=== PATIENT | male | born 1950 | race Caucasian/White ===

== ENCOUNTER 2018-04-23 07:40 | Outpatient (CLI) | payer MEDICARE, SELFPAY ==
[2018-04-23 08:49] LABS: Hemoglobin A1C 6.1 % (4.5-6.2)
[2018-04-23 09:17] LABS: Anion Gap 4.9 mmol/L (3-11); BUN 14 mg/dL (7-18); CO2 34.1 mmol/L (21.0-32.0); CREATININE 1.01 mg/dL (0.70-1.30); Calcium 8.5 mg/dL (8.5-10.1); Chloride 101 mmol/L (98-107); Cholesterol 163 mg/dL (50-200); Glucose 109 mg/dL (70-100); HDL Cholesterol 49 mg/dL (40-60); LDL CHOLESTEROL 111 mg/dL (<100); Potassium 4.2 mmol/L (3.5-5.1); Sodium 140 mmol/L (136-145); Triglyceride 54 mg/dL (30-150)
== END 2018-04-23 08:00 ==
PROVIDERS: PCP Nurse Practitioner Family; Visit Provider Nurse Practitioner Family
DX: E78.5 Hyperlipidemia, unspecified (principal); R73.01 Impaired fasting glucose
CPT/HCPCS: 36415; 80048; 80061; 83721; 83036

== ENCOUNTER 2018-04-27 00:42 | Outpatient (CLI) | payer MEDICARE, SELFPAY ==
--- NOTE | 2018-04-27 07:53 | DI.US_ITS ---
SYMPTOM/DIAGNOSIS: SCREENING FOR AAA, EX SMOKER AORTA ULTRASOUND: Sonographic evaluation of the abdominal aorta was performed. Maximum diameter of the abdominal aorta is 2.6 cm. seen in the mid abdominal aorta. No evidence of an abdominal aortic aneurysm is seen. The right common iliac artery measures 1.4 cm. The left common iliac artery measures 1.4 cm. IMPRESSION: No evidence of an abdominal aortic aneurysm.
== END 2018-04-27 01:02 ==
PROVIDERS: PCP Nurse Practitioner Family; Visit Provider Nurse Practitioner Family
DX: Z13.6 Encounter for screening for cardiovascular disorders (principal); Z87.891 Personal history of nicotine dependence
CPT/HCPCS: 76706

== ENCOUNTER 2020-06-09 10:09 | Outpatient (CLI) | payer MEDICARE, SELFPAY ==
[2020-06-11 18:33] LABS: COVID-19 RT-PCR Result Positive (Negative)
== END 2020-06-09 10:29 ==
PROVIDERS: PCP Nurse Practitioner Family; Visit Provider Nurse Practitioner Family
DX: Z20.828 Contact with and (suspected) exposure to other viral communicable diseases (principal)
CPT/HCPCS: U0003

== ENCOUNTER 2020-06-12 09:03 | Outpatient (CLI) | payer MEDICARE, SELFPAY ==
[2020-06-12] VITALS (11 sets, daily range): BP systolic 91–116; BP diastolic 57–68; PULSE 40–51; RESP 16–20; TEMP 35.8–36.6; O2SAT 94–96
[2020-06-12] MEDS: Normal Saline 500 ML 30 ML IV (10:36)
[2020-06-12] MEDS: Normal Saline Flush 10 ML SYR IVP (10:36)
== END 2020-06-12 09:23 ==
PROVIDERS: PCP Nurse Practitioner Family; Visit Provider Family Medicine
DX: U07.1 COVID-19 (principal)
CPT/HCPCS: 96365

== ENCOUNTER 2023-01-28 14:11 | Emergency (ER) | payer MEDICARE, SELFPAY ==
[2023-01-28 14:10] VITALS: BP 140/76; PULSE 88; RESP 20; TEMP 36.8; O2SAT 94
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
[2023-01-28 14:16] VITALS: BP 150/69; PULSE 81
[2023-01-28] MEDS: Acetaminophen 500 MG TAB 1000 MG PO (14:27)
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
[2023-01-28 14:37] LABS: Abs Immature Grans 0.03 10^3/uL (0.0-0.06); Absolute Basophil Count 0.03 10^3/uL (0.0-0.2); Absolute Eosinophil Count 0.02 10^3/uL (0.0-0.7); Absolute Lymphocyte Count 0.69 10^3/uL (1.2-3.4); Absolute Monocyte Count 0.64 10^3/uL (0.1-0.8); Absolute Neutrophil Count 6.86 10^3/uL (1.2-6.7); Basophils % 0.4; Eosinophils % 0.2; HCT 46.2 % (40.0-50.0); HGB 14.8 g/dL (13.5-17.5); Immature Grans % 0.4; Lymphocytes % 8.3; MCV 91 fL (80-95); MPV 9.9 fL (8.0-11.0); Monocytes % 7.7; Platelet Count 242 10^3/uL (130-400); RDW 12.4 % (11.8-14.1); RDW-SD 41.2 fL; WBC 8.27 10^3/uL (4.4-10.8)
[2023-01-28 14:50] LABS: ALT 23 U/L (16-63); AST 21 U/L (15-37); Albumin 3.5 g/dL (3.4-5.0); Alkaline Phosphatase 111 U/L (46-116); Anion Gap 7.7 mmol/L (3-11); BUN 11 mg/dL (7-18); Bilirubin, Total 1.5 mg/dL (0.2-1.0); CO2 30.3 mmol/L (21.0-32.0); CREATININE 1.1 mg/dL (0.70-1.30); Calcium 8.8 mg/dL (8.5-10.1); Chloride 99 mmol/L (98-107); Estimated GFR 70.44 (mL/min/1.73m2); Glucose 129 mg/dL (74-106); Potassium 3.3 mmol/L (3.5-5.1); Sodium 137 mmol/L (136-145); Total Protein 7.7 g/dL (6.4-8.2)
[2023-01-28] MEDS: Omnipaque 350 MG/ML 100 ML BTL IJ (15:55)
[2023-01-28] MEDS: Normal Saline - Diluent 50 ML VIAL IJ (15:55)
[2023-01-28] MEDS: Normal Saline Flush 10 ML SYR IVP (15:56)
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
[2023-01-28 16:41] VITALS: BP 134/71; PULSE 74
[2023-01-28 16:58] VITALS: BP 134/71; PULSE 74; RESP 20; O2SAT 94
== END 2023-01-28 16:59 | disposition home or self-care (01) ==
PROVIDERS: Emergency Provider Student in an Organized Health Care Education/Training Program; PCP Nurse Practitioner Family
DX: M54.50 Low back pain, unspecified (principal); M25.521 Pain in right elbow; V43.52XA Car driver injured in collision with other type car in traffic accident, initial encounter
CPT/HCPCS: 80053; 99285; 73030; 73080; 74177; 85025; 99283; J3490

== ENCOUNTER 2024-12-20 10:00 | Inpatient (IN) | payer OTHER, SELFPAY ==
[2024-12-20] VITALS (24 sets, daily range): BP systolic 120–149; BP diastolic 66–75; PULSE 59–71; RESP 18; TEMP 36.5–36.8; O2SAT 93–99
--- NOTE | 2024-12-20 10:05 | W.ED.GENAD ---
Discharge Plan Disposition Patient Disposition: Admit to [facility] Discharge Details Clinical Impression: Cellulitis of back Admit Date/Time: 12/20/24 11:41 Admit Provider: Benito Alford Attending Provider: Benito Alford Primary Care Provider: Unknown,Unknown ED Provider: Benito Eddy [facility] General Date/Time Provider Initiated Documentation: 12/20/24 10:05. HPI Narrative: MDM This is an overall well-appearing afebrile and not tachycardic 74-year-old male with cellulitis to his back failing outpatient management for which he will require hospitalization. I considered sepsis however the patient's vitals are reassuring and he lacks systemic symptoms so I did not order blood cultures nor check a lactate. No fluctuance to suggest abscess so no indication for incision and drainage. Given the confluence cellulitis is certainly possible that the patient may go on to develop an abscess but at the time of my exam there is no abscess. No vesicles to suggest zoster. No pain out of proportion to suggest necrotizing soft tissue infection so I do not feel that the patient requires CAT scan. I considered Lyme disease however the patient reports that he has not been outside for the past several weeks. There is no obvious erythema migrans. No trauma to the back so we will defer imaging. Patient is not a smoker nor diabetic though given his outpatient ceftriaxone followed by doxycycline and amoxicillin he will benefit from hospitalization for IV antibiotics. 11:22 AM I was in touch with Dr. Alford who graciously agreed to accept the patient for hospitalization. HPI This is a patient with a history of skin infection presenting with worsening symptoms. History provided by the patient. The patient began experiencing symptoms slightly over a week ago, initially perceiving them as an age-related skin change. The patient described the sensation as similar to a pimple or brown spot. Despite attempts to manage the condition with ointment and bandages, there was no improvement, and the surrounding area became increasingly tender. A subsequent visit to the [place] on 12/17/2024 resulted in a diagnosis of a pimple infection, for which the patient received an antibiotic injection in the leg. The patient was also prescribed amoxicillin and doxycycline, along with an ointment to be applied under a Band-Aid. However, upon returning to the [facility] today for a follow-up, the patient was advised to seek emergency care due to the need for incision and drainage. The patient reports no fevers and is not currently on any anticoagulant therapy. The patient does not smoke cigarettes and does not have diabetes. The patient's appetite and hydration status are normal. Exam General: Well-appearing in no acute distress speaking in complete sentences. Head: Normocephalic, atraumatic. Eye: Extraocular eye movements intact. No conjunctival injection. No scleral icterus. Ear, nose, mouth, throat: Grossly normal inspection. Normal voice, handling secretions normally. Neck: Trachea midline. Cardiovascular: Well-perfused distal extremities. Respiratory: Nonlabored respiration. Gastrointestinal: Nondistended abdomen. Musculoskeletal: No edema. Moving all 4 extremities spontaneously. Skin: On the patient's back, just to the right of midline there is a large erythematous area. Erythematous area palpated extensively. There is no fluctuance to suggest abscess. There are no vesicles. notes that inferior to this new area of cellulitis there is a chronic birthmark. Neurologic: Alert and appropriate, no apparent acute deficits. Psychiatric: Mood and manner are appropriate. Grooming and personal hygiene are appropriate. Related Data Home Medications ?Medication ?Instructions ?Recorded ?Confirmed multivitamin (Once Daily tablet) 1 ea PO DAILY 09/25/12 12/20/24 aspirin 81 mg tablet,delayed 81 mg PO DAILY #1 tab-cap 10/29/13 12/20/24 release (Adult Low Dose Aspirin) omeprazole 20 mg tablet,delayed 20 mg PO BID #180 tabs 04/21/17 12/20/24 release tamsulosin 0.4 mg capsule 0.4 mg PO DAILY #90 tab-caps 08/27/17 12/20/24 albuterol sulfate 90 mcg/actuation 1 - 2 puff inhalation Q4-6H PRN ##1 11/06/17 12/20/24 aerosol inhaler (ProAir HFA) inhalational spacing device (Space ##1 11/06/17 12/20/24 Chamber Plus) montelukast 10 mg tablet 10 mg PO DAILY #30 tab-caps 11/06/17 12/20/24 (Singulair) amlodipine 2.5 mg tablet 2.5 mg PO DAILY 01/28/23 12/20/24 furosemide 20 mg tablet 20 mg PO DAILY 01/28/23 12/20/24 propranolol 80 mg capsule,24 40 mg PO DAILY 01/28/23 12/20/24 hr,extended release Previous Rx's ?Medication ?Instructions ?Recorded omeprazole 20 mg tablet,delayed 20 mg PO BID #180 tabs 04/21/17 release tamsulosin 0.4 mg capsule 0.4 mg PO DAILY #90 tab-caps 08/27/17 albuterol sulfate 90 mcg/actuation 1 - 2 puff inhalation Q4-6H PRN ##1 11/06/17 aerosol inhaler (ProAir HFA) montelukast 10 mg tablet 10 mg PO DAILY #30 tab-caps 11/06/17 (Singulair) Allergies Allergy/AdvReac Type Severity Reaction Status Date / Time zoster vaccine live (From AdvReac lg local Verified 12/20/24 10:11 ZOSTAVAX (PF)) reaction General INDIRA: 3 PFSH All Active Problems (Updated 12/20/24 @ 12:02 by Ginny Still APRN) Discharge planning issues (Acute) On deep vein thrombosis (DVT) prophylaxis (Acute) Cellulitis of back (Acute) IFG (impaired fasting glucose) (Chronic) Obesity (BMI 30-39.9) (Chronic) Varicose veins of lower extremity (Chronic 10/02/12) Compression stockings Restrictive lung disease (Chronic 11/16/14) TLC 63% 10/2014 [place] [facility] [place] unclear Hyperlipidemia (Chronic 04/21/17) 03/2018 labs: 10-year ASCVD risk = ~15.7% --> pt advised to consider statin Gastroesophageal reflux disease (Chronic 10/02/12) Essential tremor (Chronic 05/10/13) Diverticulosis of large intestine without perforation or abscess without bleeding (Chronic 07/10/16) Saenz's esophagus (Chronic 09/24/11) Most recent EGD 06/20/2016 (Dr. Raman) with 3 year f/u recommended BPH (benign prostatic hyperplasia) (Chronic 09/01/14) Medical History (Updated 12/20/24 @ 12:02 by Ginny Still APRN) Barretts esophagus IFG (impaired fasting glucose) HLD (hyperlipidemia) Surgical History Vasectomy (~1976) Tonsillectomy (~1976) Cholecystectomy (~1994) Family History Mother No problems noted. Father , ?colon cancer Neoplasm colon ca Brother , esophagus cancer at age 54. Personal history of malignant neoplasm Social History Smoking/Tobacco Use Status: Former Tobacco Use Smoking risk assessment performed?: Yes Alcohol Intake: current Alcohol Intake frequency: holidays/special occasions only Substance use type: does not use Housing: house
[2024-12-20 10:38] LABS: Abs Immature Grans 0.02 10^3/uL (0.0-0.06); Absolute Basophil Count 0.02 10^3/uL (0.0-0.2); Absolute Eosinophil Count 0.06 10^3/uL (0.0-0.7); Absolute Lymphocyte Count 0.49 10^3/uL (1.2-3.4); Absolute Monocyte Count 0.54 10^3/uL (0.1-0.8); Absolute Neutrophil Count 3.96 10^3/uL (1.2-6.7); Basophils % 0.4 %; Eosinophils % 1.2 %; HCT 42.6 % (40.0-50.0); HGB 13.6 g/dL (13.5-17.5); Immature Grans % 0.4 %; Lymphocytes % 9.6 %; MCH 29.1 pg (27.0-33.0); MCHC 31.9 % (32.0-36.0); MCV 91 fL (80-95); MPV 10.8 fL (8.0-11.0); Monocytes % 10.6 %; Neutrophils % 77.8 %; Platelet Count 252 10^3/uL (130-400); RBC 4.68 10^6/uL (4.36-5.78); RDW 13.3 % (11.8-14.1); WBC 5.09 10^3/uL (4.4-10.8)
[2024-12-20] MEDS: cefTRIAXone 2 GM/50 ML BAG IVPB (10:40)
[2024-12-20 10:55] LABS: Anion Gap 5.4 mmol/L (3-11); BUN 12 mg/dL (7-18); CO2 33.6 mmol/L (21.0-32.0); CREATININE 0.9 mg/dL (0.70-1.30); Calcium 9.1 mg/dL (8.5-10.1); Chloride 100 mmol/L (98-107); Estimated GFR 88.51 (mL/min/1.73m2); Glucose 127 mg/dL (74-106); Potassium 3.9 mmol/L (3.5-5.1); Sodium 139 mmol/L (136-145)
--- NOTE | 2024-12-20 11:25 | W.PM.HP.N ---
Date of service: 12/20/24 Time of Service: 11:25 Assessment and Plan Assessment and plan (1) Cellulitis of back: Status: Acute Assessment and plan: Right upper back cellulitis with minimal fluctuance in around depressed center with what might be/possibly skin The patient is not septic as per criteria Surgical consult Blood cultures Vancomycin Ceftriaxone (2) Obesity (BMI 30-39.9): Status: Chronic Assessment and plan: PCP follow-up (3) Varicose veins of lower extremity: Status: Chronic Assessment and plan: Ongoing teds (4) Hyperlipidemia: Status: Chronic Assessment and plan: Continue outpatient therapy (5) Gastroesophageal reflux disease: Status: Chronic Assessment and plan: Continue outpatient therapy (6) BPH (benign prostatic hyperplasia): Status: Chronic Assessment and plan: Controlled patient presents (7) On deep vein thrombosis (DVT) prophylaxis: Status: Acute Assessment and plan: Lovenox (8) Discharge planning issues: Status: Acute Assessment and plan: Discharge when medically ready, was independent at home and living with spouse Discussed with Dr. Flores History of Present Illness History of Present Illness Chief Complaint: Right back cellulitis Narrative: 74-year-old male patient with past medical history of hyperlipidemia, hypertension, [facility] for infectious pimple to the right upper back was referred to the ED at [facility] due to worsening right upper back cellulitis. The patient was afebrile, with tachycardia, normotensive on arrival via private vehicle. Blood work was unremarkable; ceftriaxone and vancomycin were initiated in the ED. This was consulted and patient mated to the medical surgical floor for ongoing treatment for vasculitis with IV ceftriaxone and vancomycin. Blood cultures were ordered. The patient denied dizziness, change in vision, headache, chills, fevers, night sweats, chest pain, nausea, vomiting, diarrhea, constipation, hematochezia or dysuria. The patient is a full code as per advance directives on file. Review of Systems All systems reviewed & are unremarkable except as noted in HPI and below PFSH All Active Problems (Updated 12/20/24 @ 12:02 by Ginny Still APRN) Discharge planning issues (Acute) On deep vein thrombosis (DVT) prophylaxis (Acute) Cellulitis of back (Acute) IFG (impaired fasting glucose) (Chronic) Obesity (BMI 30-39.9) (Chronic) Varicose veins of lower extremity (Chronic 10/02/12) Compression stockings Restrictive lung disease (Chronic 11/16/14) TLC 63% 10/2014 Dr [place] [facility] [place] etiology unclear Hyperlipidemia (Chronic 04/21/17) 03/2018 labs: 10-year ASCVD risk = ~15.7% --> pt advised to consider statin Gastroesophageal reflux disease (Chronic 10/02/12) Essential tremor (Chronic 05/10/13) Diverticulosis of large intestine without perforation or abscess without bleeding (Chronic 07/10/16) Saenz's esophagus (Chronic 09/24/11) Most recent EGD 06/20/2016 (Dr. Raman) with 3 year f/u recommended BPH (benign prostatic hyperplasia) (Chronic 09/01/14) Medical History (Updated 12/20/24 @ 12:02 by Ginny Still APRN) Barretts esophagus IFG (impaired fasting glucose) HLD (hyperlipidemia) Surgical History Vasectomy (~1976) Tonsillectomy (~1976) Cholecystectomy (~1994) Family History Mother No problems noted. Father , ?colon cancer Neoplasm colon ca Brother , esophagus cancer at age 54. Personal history of malignant neoplasm Social History Smoking/Tobacco Use Status: Former Tobacco Use Smoking risk assessment performed?: Yes Alcohol Intake: current Alcohol Intake frequency: holidays/special occasions only Substance use type: does not use Housing: house Meds Allergies and Home Medications Allergies Allergy/AdvReac Type Severity Reaction Status Date / Time zoster vaccine live (From AdvReac lg local Verified 12/20/24 10:11 ZOSTAVAX (PF)) reaction Home Medications ?Medication ?Instructions ?Recorded ?Confirmed ?Type multivitamin (Once Daily tablet) 1 ea PO DAILY 09/25/12 12/20/24 History aspirin 81 mg tablet,delayed 81 mg PO DAILY #1 tab-cap 10/29/13 12/20/24 History release (Adult Low Dose Aspirin) omeprazole 20 mg tablet,delayed 20 mg PO BID #180 tabs 04/21/17 12/20/24 Rx release tamsulosin 0.4 mg capsule 0.4 mg PO DAILY #90 tab-caps 08/27/17 12/20/24 Rx albuterol sulfate 90 mcg/actuation 1 - 2 puff inhalation Q4-6H PRN ##1 11/06/17 12/20/24 Rx aerosol inhaler (ProAir HFA) inhalational spacing device (Space ##1 11/06/17 12/20/24 History Chamber Plus) montelukast 10 mg tablet 10 mg PO DAILY #30 tab-caps 11/06/17 12/20/24 Rx (Singulair) amlodipine 2.5 mg tablet 2.5 mg PO DAILY 01/28/23 12/20/24 History furosemide 20 mg tablet 20 mg PO DAILY 01/28/23 12/20/24 History propranolol 80 mg capsule,24 40 mg PO DAILY 01/28/23 12/20/24 History hr,extended release Exam Narrative Exam Narrative: 74 years old male patient looking older than stated age, without acute distress appears neurologically intact, alert oriented x 3, clear lung, S1-S2 no cardiac murmurs positive pulses to all 470s abdomen is large nondistended soft nontender, no CVA tenderness, moves all 4 extremities. Erythema to right upper back C8-T7?slight depression at T4 with slough versus pus at the center but the skin is not broken with minimal discomfort and fluctuant to palpation - birthmark extending from T7-T9 10 Results Labs 12/20/24 10:30 12/20/24 10:30 Labs: Laboratory Results - last 24 hr 12/20/24 10:30 WBC 5.09 RBC 4.68 Hgb 13.6 Hct 42.6 MCV 91 MCH 29.1 MCHC 31.9 L RDW 13.3 Plt Count 252 MPV 10.8 Immature Gran % 0.4 Neutrophils % 77.8 Lymphocytes % 9.6 Monocytes % 10.6 Eosinophils % 1.2 Basophils % 0.4 Nucleated RBC % 0.0 Absolute Neutrophils 3.96 Absolute Lymphocytes 0.49 L Absolute Monocytes 0.54 Absolute Eosinophils 0.06 Absolute Basophils 0.02 Sodium 139 Potassium 3.9 Chloride 100 Carbon Dioxide 33.6 H Anion Gap 5.4 BUN 12 Creatinine 0.9 Est GFR (CKD-EPI 2020) 88.51 Glucose 127 H Calcium 9.1 Last Vital Signs Temp 36.8 C 12/20/24 10:21 Pulse 63 06/23/25 10:40 Resp 18 12/20/24 10:21 BP 149/70 H 12/20/24 10:21 Pulse Ox 97 12/20/24 10:40 Time Spent Time spent with Patient: >75 minutes Time was spent: preparing to see the patient(eg.review tests), obtaining and/or reviewing separately otained hiistory, ordering medications,tests, procedures, referring, communicating with other health career transition specialist, indepentently interpreting results, counseling the patient and care coordination
[2024-12-20] MEDS: VANCOMYCIN/WATER (PEG) 2 GM/400 ML BAG IV (11:43)
--- NOTE | 2024-12-20 13:02 | W.PC.ACHO ---
Registration Status: REG ER Primary Language: Preferred Language: Turkish ED Information & Data Chief Complaint Cellulitis 12/20/24 10:21 Chief Complaint Cellulitis 12/20/24 10:05 Triage Note [facility] 10:05 with extensive redness and warm from the right side of his back. Pt received antibiotics from the [facility] but little improvement Medical / Surgical History (Last Reviewed 01/28/23 @ 14:33 by Josh Shrestha DO) Barretts esophagus IFG (impaired fasting glucose) HLD (hyperlipidemia) (Last Reviewed 01/28/23 @ 14:33 by Josh Shrestha DO) Vasectomy (~1976) Tonsillectomy (~1976) Cholecystectomy (~1994) Most Recent Vital Signs Temperature 36.8 C 12/20/24 10:21 Temperature Source Oral 12/20/24 10:21 Pulse 64 12/20/24 13:00 Respiratory Rate 18 12/20/24 10:21 Blood Pressure 149/70 H 12/20/24 10:21 Blood Pressure Mean 97 12/20/24 10:16 Blood Pressure Position Sitting 12/20/24 10:21 Pulse Oximetry 97 12/20/24 13:00 Oxygen Delivery Method Room Air 12/20/24 10:21 Oxygen Flow Rate 0 12/20/24 10:05 Pain Level 0 12/20/24 10:21 Allergies zoster vaccine live (From ZOSTAVAX (PF)) Adverse Reaction (Verified 12/20/24 10:11) lg local reaction Precautions Isolation Standard precaution 12/20/24 10:21 IV IV Catheter Type [Right Saline Lock Antecubital] IV Catheter Gauge [Right 18 Antecubital] Diagnostics 12/20/24 Range/Units 10:30 WBC 5.09 (4.4-10.8) 10^3/uL RBC 4.68 (4.36-5.78) 10^6/uL Hgb 13.6 (13.5-17.5) g/dL Hct 42.6 (40.0-50.0) % MCV 91 (80-95) fL MCH 29.1 (27.0-33.0) pg MCHC 31.9 L (32.0-36.0) % RDW 13.3 (11.8-14.1) % Plt Count 252 (130-400) 10^3/uL MPV 10.8 (8.0-11.0) fL Immature Gran % 0.4 % Neutrophils % 77.8 % Lymphocytes % 9.6 % Monocytes % 10.6 % Eosinophils % 1.2 % Basophils % 0.4 % Nucleated RBC % 0.0 (0.0-0.3) % Absolute Neutrophils 3.96 (1.2-6.7) 10^3/uL Absolute Lymphocytes 0.49 L (1.2-3.4) 10^3/uL Absolute Monocytes 0.54 (0.1-0.8) 10^3/uL Absolute Eosinophils 0.06 (0.0-0.7) 10^3/uL Absolute Basophils 0.02 (0.0-0.2) 10^3/uL Sodium 139 (136-145) mmol/L Potassium 3.9 (3.5-5.1) mmol/L Chloride 100 (98-107) mmol/L Carbon Dioxide 33.6 H (21.0-32.0) mmol/L Anion Gap 5.4 (3-11) mmol/L BUN 12 (7-18) mg/dL Creatinine 0.9 (0.70-1.30) mg/dL Est GFR (CKD-EPI 2020) 88.51 (mL/min/1.73m2) Glucose 127 H (74-106) mg/dL Calcium 9.1 (8.5-10.1) mg/dL 12/20/24 11:41 Blood Culture - Pending Blood 12/20/24 11:41 Blood Culture - Pending Blood Intake and Output - 24 Hour Total 12/20/24 10:00 thru 12/20/24 12:17 Intake Total 50 Balance 50 Weight 113.398 kg Intake: IV 50 Falls Risk Assessment History of Falls No History 12/20/24 10:21 Contributing Factors No Factors 12/20/24 10:21 Ambulatory Aids Independent 12/20/24 10:21 Tubes/Lines None 12/20/24 10:21 Gait Evaluation No gait disturbance 12/20/24 10:21 Cognition No cognitive impairment 12/20/24 10:21 Fall Total Score 0 12/20/24 10:21 Level of Risk Standard/Low Risk 12/20/24 10:21 Problems (Last Reviewed 01/28/23 @ 14:33 by Josh R Fady, DO) Discharge planning issues (Acute) On deep vein thrombosis (DVT) prophylaxis (Acute) Cellulitis of back (Acute) Obesity (BMI 30-39.9) (Chronic) Varicose veins of lower extremity (Chronic 10/02/12) Hyperlipidemia (Chronic 04/21/17) Gastroesophageal reflux disease (Chronic 10/02/12) BPH (benign prostatic hyperplasia) (Chronic 09/01/14) v v v v v v v v v Sending and/or Receiving Nurses: Please use comment section below to note any information pertinent to the patient hand-off not included above. Information / Comments: paged at [phone] and report called for at [phone]. 18 G R AC. Report received from: Kirstin Tucker ED RN
[2024-12-20 17:03] LABS: Vancomycin, Random 19.8 ug/mL
[2024-12-20] MEDS: Normal Saline Flush 10 ML SYR IVP (20:22)
[2024-12-20] MEDS: Omeprazole 20 MG CAPCR PO (20:22)
--- NOTE | 2024-12-20 20:51 | W.SURGCON ---
Date of service: 12/20/24 Time of Service: 20:51 Assessment and Plan Assessment and plan (1) Cellulitis: Status: Acute Assessment and plan: Some of the history, and certainly its appearance as features consistent with acute cellulitis. However, it is not at all tender, which would be atypical for cellulitis. It does, however, seem to be responding to antibiotics. I suppose a vasculitis would also be within the differential diagnosis here. For now, I think a short course of observation with antibiotics is very reasonable. At this point, there is nothing to drain. However if there is no significant improvement over the next day or so, then I do think a biopsy is probably a reasonable course of action. History of Present Illness History of Present Illness Chief Complaint: Skin wound Narrative: Josiah is 76 years old. He first noticed some swelling on the right side of his back around 10 days ago. At first, he did not think much of it. It was not painful. Mostly, he noticed that his shirt was not quite fitting right. His describes some redness on the back, and thought it might have been a bug bite or some type of infection. He was evaluated at the [facility]. It sounds like he was diagnosed with cellulitis, and treated with an intramuscular antibiotic. He was prescribed outpatient amoxicillin and doxycycline. The redness continued spreading over his back, and he also noticed some serous discharge. Went back to the [place], and they referred him to the emergency department. He denies any nausea, vomiting, cough, congestion, fevers, chills, or any other systemic signs of infection. This is never happened to him before. [facility] All Active Problems (Updated 12/20/24 @ 21:02 by Raman Meza MD) Cellulitis (Acute) Discharge planning issues (Acute) On deep vein thrombosis (DVT) prophylaxis (Acute) Cellulitis of back (Acute) IFG (impaired fasting glucose) (Chronic) Obesity (BMI 30-39.9) (Chronic) Varicose veins of lower extremity (Chronic 10/02/12) Compression stockings Restrictive lung disease (Chronic 11/16/14) TLC 63% 10/2014 Dr [place] [facility] [place] etiology unclear Hyperlipidemia (Chronic 04/21/17) 03/2018 labs: 10-year ASCVD risk = ~15.7% --> pt advised to consider statin Gastroesophageal reflux disease (Chronic 10/02/12) Essential tremor (Chronic 05/10/13) Diverticulosis of large intestine without perforation or abscess without bleeding (Chronic 07/10/16) Saenz's esophagus (Chronic 09/24/11) Most recent EGD 06/20/2016 (Dr. Raman) with 3 year f/u recommended BPH (benign prostatic hyperplasia) (Chronic 09/01/14) Medical History (Updated 12/20/24 @ 21:02 by Raman Meza MD) Barretts esophagus IFG (impaired fasting glucose) HLD (hyperlipidemia) Surgical History Vasectomy (~1976) Tonsillectomy (~1976) Cholecystectomy (~1994) Family History Mother No problems noted. Father , ?colon cancer Neoplasm colon ca Brother , esophagus cancer at age 54. Personal history of malignant neoplasm Social History Smoking/Tobacco Use Status: Former Tobacco Use Smoking risk assessment performed?: Yes Alcohol Intake: current Alcohol Intake frequency: holidays/special occasions only Substance use type: does not use Housing: house Exam Const General: cooperative, healthy appearing and comfortable Nutritional Appearance: average body habitus Orientation: alert, awake and oriented x3 HENMT Head: normal to inspection Ears: hearing grossly normal bilaterally Eyes General: appearance normal, both eyes and all related structures Neck Neck: normal visual inspection, full ROM and no lymphadenopathy Back/Spine/Pelvis Other: There is a large area of blanching erythema over the right side of his back. It centered mostly around the tip of the scapula, but slightly medial. There is no axillary lymphadenopathy. There is no fluctuance. Results Last Vital Signs Temp 98.1 F 12/20/24 19:48 Pulse 71 12/20/24 19:48 Resp 18 12/20/24 19:48 BP 120/72 12/20/24 19:48 Pulse Ox 93 12/20/24 19:48 Labs 12/20/24 10:30 12/20/24 10:30 Labs: Laboratory Results - last 24 hr 12/20/24 12/20/24 10:30 16:00 WBC 5.09 RBC 4.68 Hgb 13.6 Hct 42.6 MCV 91 MCH 29.1 MCHC 31.9 L RDW 13.3 Plt Count 252 MPV 10.8 Immature Gran % 0.4 Neutrophils % 77.8 Lymphocytes % 9.6 Monocytes % 10.6 Eosinophils % 1.2 Basophils % 0.4 Nucleated RBC % 0.0 Absolute Neutrophils 3.96 Absolute Lymphocytes 0.49 L Absolute Monocytes 0.54 Absolute Eosinophils 0.06 Absolute Basophils 0.02 Sodium 139 Potassium 3.9 Chloride 100 Carbon Dioxide 33.6 H Anion Gap 5.4 BUN 12 Creatinine 0.9 Est GFR (CKD-EPI 2020) 88.51 Glucose 127 H Calcium 9.1 Random Vancomycin 19.8
[2024-12-20] MEDS: VANCOMYCIN/WATER (PEG) 1 GM/200 ML BAG IV (23:44)
[2024-12-21] MEDS: Normal Saline Flush 10 ML SYR IVP ×3 (00:52→20:21)
[2024-12-21 07:01] LABS: Abs Immature Grans 0.03 10^3/uL (0.0-0.06); Absolute Basophil Count 0.02 10^3/uL (0.0-0.2); Absolute Eosinophil Count 0.09 10^3/uL (0.0-0.7); Absolute Lymphocyte Count 0.59 10^3/uL (1.2-3.4); Absolute Monocyte Count 0.54 10^3/uL (0.1-0.8); Absolute Neutrophil Count 4.01 10^3/uL (1.2-6.7); Basophils % 0.4 %; Eosinophils % 1.7 %; HCT 39.1 % (40.0-50.0); Immature Grans % 0.6 %; Lymphocytes % 11.2 %; MCHC 33.2 % (32.0-36.0); MCV 90 fL (80-95); MPV 10.3 fL (8.0-11.0); Monocytes % 10.2 %; Neutrophils % 75.9 %; Platelet Count 237 10^3/uL (130-400); RBC 4.34 10^6/uL (4.36-5.78); RDW 13.4 % (11.8-14.1); RDW-SD 44.4 fL; WBC 5.28 10^3/uL (4.4-10.8)
[2024-12-21 07:16] LABS: Anion Gap 6.8 mmol/L (3-11); BUN 9 mg/dL (7-18); CO2 30.2 mmol/L (21.0-32.0); CREATININE 0.8 mg/dL (0.70-1.30); Calcium 8.6 mg/dL (8.5-10.1); Chloride 103 mmol/L (98-107); Estimated GFR 91.72 (mL/min/1.73m2); Glucose 104 mg/dL (74-106); Magnesium 1.7 mg/dL (1.8-2.4); Potassium 3.7 mmol/L (3.5-5.1); Sodium 140 mmol/L (136-145)
[2024-12-21 07:23] VITALS: BP 129/78; PULSE 64; RESP 18; TEMP 36.5; O2SAT 96
[2024-12-21] MEDS: amLODIPine 2.5 MG TAB PO (07:48)
[2024-12-21] MEDS: Enoxaparin 40 MG/0.4 ML SYR SC (07:48)
[2024-12-21] MEDS: Furosemide 20 MG TAB PO (07:49)
[2024-12-21] MEDS: Tamsulosin 0.4 MG CAPCR PO (07:49)
[2024-12-21] MEDS: Omeprazole 20 MG CAPCR PO ×2 (07:49→20:21)
[2024-12-21] MEDS: cefTRIAXone 2 GM/50 ML BAG IVPB (09:51)
--- NOTE | 2024-12-21 11:01 | PGE_ITS ---
Date of Service Date of service: 12/21/24 Time of Service: 11:01 Assessment and Plan Assessment and plan (1) Cellulitis of back: Start date: 12/21/24 Start time: 11:16 Status: Acute Assessment and plan: Right upper back cellulitis with minimal fluctuance in around depressed center with what might be/possibly skin Minimal tenderness to upper lesion improved Surgical consult: -no recommendation for I&D -Considering DDx: vasculitis and if no improvement considering biopsy as a reasonable course of action. Blood cultures pending Continue Vancomycin and Ceftriaxone (2) Obesity (BMI 30-39.9): Start date: 12/21/24 Start time: 11:16 Status: Chronic Assessment and plan: Outpatient follow-up (3) Varicose veins of lower extremity: Start date: 12/21/24 Start time: 11:16 Status: Chronic Assessment and plan: Ongoing home TEDS (4) Hyperlipidemia: Start date: 12/21/24 Start time: 11:16 Status: Chronic Assessment and plan: On outpatient therapy (5) Gastroesophageal reflux disease: Start date: 12/21/24 Start time: 11:16 Status: Chronic Assessment and plan: On outpatient therapy (6) BPH (benign prostatic hyperplasia): Start date: 12/21/24 Start time: 11:16 Status: Chronic Assessment and plan: On flomax (7) On deep vein thrombosis (DVT) prophylaxis: Start date: 12/21/24 Start time: 11:15 Status: Acute Assessment and plan: Ongoing Lovenox (8) Discharge planning issues: Start date: 12/21/24 Start time: 11:15 Status: Acute Assessment and plan: Home when medically ready, was independent at home and living with spouse Discussed with Dr. Flores Subjective Subjective Patient reports: no new complaints, tolerating liquids well, tolerating a regular diet, voiding w/o difficulty and bowel movement; denies diarrhea, blood in stool, nausea, vomiting, shortness of breath or fever Exam Narrative Exam Narrative: 74 years old male patient looking older than stated age, without acute distress , alert oriented x 3, clear lung, S1-S2 no cardiac murmurs abdomen is large nondistended soft nontender,, moves all 4 extremities. receding erythema to right upper back with no further discomfort on palpation - Objective Last Vital Signs Temp 36.5 C 12/21/24 07:23 Pulse 64 12/21/24 07:23 Resp 18 12/21/24 07:23 BP 129/78 12/21/24 07:23 Pulse Ox 96 12/21/24 07:23 Laboratory Results - last 24 hr 12/20/24 12/21/24 16:00 06:40 WBC 5.28 RBC 4.34 L Hgb 13.0 L Hct 39.1 L MCV 90 MCH 30.0 MCHC 33.2 RDW 13.4 Plt Count 237 MPV 10.3 Immature Gran % 0.6 Neutrophils % 75.9 Lymphocytes % 11.2 Monocytes % 10.2 Eosinophils % 1.7 Basophils % 0.4 Nucleated RBC % 0.0 Absolute Neutrophils 4.01 Absolute Lymphocytes 0.59 L Absolute Monocytes 0.54 Absolute Eosinophils 0.09 Absolute Basophils 0.02 Sodium 140 Potassium 3.7 Chloride 103 Carbon Dioxide 30.2 Anion Gap 6.8 BUN 9 Creatinine 0.8 Est GFR (CKD-EPI 2020) 91.72 Glucose 104 Calcium 8.6 Magnesium 1.7 L Random Vancomycin 19.8 PAWSS Have you Been Recently Intoxicated or Drunk Within the Last 30 days?: No Have you Ever Experienced Previous Episodes of Alcohol Withdrawal?: No Have you ever Experienced Withdrawal Seizures?: No Have you ever Experienced Delirium Tremens(DT)s?: No Have you ever undergone Alcohol Rehabilitation Treatment (i.e, inpt ot outpatient treatment programs)?: No Have you ever Experienced Blackouts?: No Have you ever Combined Alcohol with other Downers within the last 90 days?: No Have you ever Combined Alcohol with any other Substance of Abuse during the last 90 days?: No Positive Blood Alcohol level on Presentation? [PCS.BAL]: No Evidence of Increased Autonomic Activity (i.e. HR>120, tremor, sweating, agitation, nausea)?: No Result: 0 Time Spent with Patient Time Spent with Patient: >50 minutes Time was spent: preparing to see the patient(eg.review tests), obtaining and/or reviewing separately otained hiistory, ordering medications,tests, procedures, referring, communicating with other health animal caretaker supervisor, indepentently i nterpreting results, counseling the patient and care coordination
--- NOTE | 2024-12-21 11:23 | PDOC.CMIN ---
Date of service: 12/21/24 Time of Service: 11:23 Care Management Initial Assmt Initial Assessment Reason for Hospitalization: cellulitis of the back Functional Status/Living Situation Patient Presentation: [facility] was seen at the [facility] on [facility]17 for a pimple infection. He received an injection of an antibiotic and was discharged on both amoxicillin and doxycycline, along with an ointment to apply under bandaid. He returned to the [facility] for a f/u on 12/20, and was encouraged to go to the ER. Josiah was found to have a vasculitis/cellulitis and was admitted for IV antibiotics and surgical consult. Josiah was sitting on the edge of the bed when CM met with him today. He is independent in his room, and in the community, and has been noted to be walking in the halls. Josiah was very pleasant with CM. He stated that he and his initially thought that he was bitten by a bug, [facility] the [facility]. He stated that he is feeling a lot better today. His has been taking pictures of his back, and he stated that it has improved. He was hoping to go home today, but provider wants to see the blood cultures results before discharge. Town of Residence: [facility] Resides with: Spouse (Alia) Significant Other/Family: Local (daughter, Jocelyn, and her family) Natural Supports: family Employment Status: Retired () Instrumental Activities of Daily Living (ADLs): Independent Medications Medication Management: No Issues/Barriers identified Advance Directives Advance Directives: Do you have an Advance Directive: N 10/04/13, 08:12 AD On File at [facility]: N 10/04/13, 08:12 Date Asked 12/20/24 12/20/24, 10:12 AD Date Reviewed COLST On File at [facility] COLST Date Scanned Code Status Resuscitation Status Full Code Insurance Coverage/Financial Issues Insurance: [facility] Care Team Visit Care Team Role Provider Type Ginny Still APRN MD [facility] STAFF PHYSICIAN Unknown Unknown Primary Care Provider STAFF PHYSICIAN Raman Meza MD Other Providers [facility] STAFF PHYSICIAN Benito Eddy MD Emergency Provider [facility] STAFF PHYSICIAN Benito Alford Admit Provider [facility] STAFF PHYSICIAN Attending Provider Discharge Potential Discharge Needs: PCP F/U Appt Anticipated Barriers to Discharge: None Identified Patient/Family Education Needs: Review discharge instructions, discuss Ask Me Three Transportation: Private vehicle Plan: Anticipate that Josiah will be discharged home once medically cleared. He will f/u with his PCP and continue per his plan of care. Josiah will transport home in a private vehicle. CM will continue to follow. Social Determinants of Health Screening Social Determinants of health last assessed in clinic: 12/21/24 Will the Patient Participate in the Screening?: Yes Do you worry about having a steady place to live?: no Problems where you live: no known problems In the past 12 months, have you had to go without electric, gas, oil or water in your home?: no 1. Within the past 12 months, we worried whether our food would run out before we got money to buy more.: Don't know/refused 2. Within the past 12 months, the food we bought just didn't last and we didn't have money to get more.: Don't know/refused Has lack of transportation kept you from medical appointments or from doing things needed for daily living?: no Has anyone in your life made you feel unsafe or unsupported?: no How hard is it for you to pay for the very basics like food, housing, medical care, and heating? Would you say it is:: Not hard at all Do you want help finding or keeping work or a job?: I do not need or want help If for any reason you need help with day-to-day activities such as bathing, preparing meals, shopping, managing finances, etc., do you get the help you need?: I don?t need any help How often do you feel lonely or isolated from those around you?: Never Do you speak a language other than Yi at home?: No Does the patient want assistance with any of the above?: No PFSH All Active Problems (Updated 12/20/24 @ 21:02 by Raman Meza MD) Cellulitis (Acute) Discharge planning issues (Acute) On deep vein thrombosis (DVT) prophylaxis (Acute) Cellulitis of back (Acute) IFG (impaired fasting glucose) (Chronic) Obesity (BMI 30-39.9) (Chronic) Varicose veins of lower extremity (Chronic 10/02/12) Compression stockings Restrictive lung disease (Chronic 11/16/14) TLC 63% 10/2014 Dr [place] [facility] [place]; etiology unclear Hyperlipidemia (Chronic 04/21/17) 03/2018 labs: 10-year ASCVD risk = ~15.7% --> pt advised to consider statin Gastroesophageal reflux disease (Chronic 10/02/12) Essential tremor (Chronic 05/10/13) Diverticulosis of large intestine without perforation or abscess without bleeding (Chronic 07/10/16) Saenz's esophagus (Chronic 09/24/11) Most recent EGD 06/20/2016 (Dr. Raman) with 3 year f/u recommended BPH (benign prostatic hyperplasia) (Chronic 09/01/14) Medical History (Updated 12/20/24 @ 21:02 by Raman Meza MD) Barretts esophagus IFG (impaired fasting glucose) HLD (hyperlipidemia) Surgical History Vasectomy (~1976) Tonsillectomy (~1976) Cholecystectomy (~1994) Family History Mother No problems noted. Father , ?colon cancer Neoplasm colon ca Brother , esophagus cancer at age 54. Personal history of malignant neoplasm Social History Smoking/Tobacco Use Status: Former Tobacco Use Smoking risk assessment performed?: Yes Alcohol Intake: current Alcohol Intake frequency: holidays/special occasions only Substance use type: does not use Housing: house
[2024-12-21] MEDS: VANCOMYCIN/WATER (PEG) 1 GM/200 ML BAG IV ×2 (11:42→22:56)
--- NOTE | 2024-12-21 13:51 | PHACLINREV_ITS ---
Pharmacy Admission Review Admission Clinical Review Admission Pharmacy Review: Cellulitis (Acute) Discharge planning issues (Acute) On deep vein thrombosis (DVT) prophylaxis (Acute) Cellulitis of back (Acute) zoster vaccine live (From ZOSTAVAX (PF)) Adverse Reaction (Verified 12/20/24 10:11) lg local reaction Resuscitation Status Full Code Height 5 ft 9 in Weight 114.5 kg Pharmacy Admission Review Renal Dosing Renal Dosing: BUN 9 mg/dL (7-18) 12/21/24 06:40 Creatinine 0.8 mg/dL (0.70-1.30) 12/21/24 06:40 Medications needing adjustments: Reviewed (No dose adjustment necessary at this time. Patient's Crcl is 78ml/min) Anticoagulation Anticoagulation: Hgb 13.0 g/dL (13.5-17.5) L 12/21/24 06:40 Hct 39.1 % (40.0-50.0) L 12/21/24 06:40 Plt Count 237 10^3/uL (130-400) 12/21/24 06:40 Creatinine 0.8 mg/dL (0.70-1.30) 12/21/24 06:40 DVT Prophylaxis: Reviewed (Patient on Enoxaparin 40mg daily for DVT prophylaxis) Opiate Usage Evaluate Pain Scale/Pains Meds: N/A Relevant Labs Relevant Labs: Sodium 140 mmol/L (136-145) 12/21/24 06:40 Potassium 3.7 mmol/L (3.5-5.1) 12/21/24 06:40 Chloride 103 mmol/L (98-107) 12/21/24 06:40 Magnesium 1.7 mg/dL (1.8-2.4) L 12/21/24 06:40 Electrolytes, C-Reactive P, ESR: Reviewed (Electrolytes stable, Magnesium needs to be monitored. Currently 1.7mg/dL) DM Control DM Control: Reviewed (No record of DM in H as of today) Cardiac Review Cardiac Review: Blood Pressure : Heart rate 129/78 : 64 Blood Pressure : Heart rate 120/72 : 71 Blood Pressure : Heart rate 125/66 : 68 BP, HR, EF%: Reviewed (BP and HR have been stable since 12/21/24) QTc Review QTc: N/A List meds needing interventions: Patient not on any QT prolonging medications IV to PO Switch IV Medications: N/A Home Meds Home Med List reviewed: Reviewed Relevent Home Meds Not ordered & why?: All home medications have been ordered. Propranolol was also initially ordered but was confirmed to be discontinued hence cancelled. Current Meds Current Medication Order Review: Reviewed Pharmacy Antibiotic Review Relevant Labs: Vancomycin trough ordered for tomorrow when steady state is achieved to re- assess therapy. Trough target 10-15mg/L
--- NOTE | 2024-12-21 16:35 | CHAPLAIN ---
Josiah was sitting up in bed when I visited. He is hoping to be discharged today, but was still here as of 4:30 p.m. A family member/friend was with him. I explained my role and offered support.
--- NOTE | 2024-12-21 17:37 | W.PM.PROGNOT ---
Date of Service Date of service: 12/21/24 Time of Service: 17:37 Assessment and Plan Assessment and plan (1) Cellulitis: Status: Acute Assessment and plan: Overall, I would say that the cellulitis features are improving a little bit. Certainly, there remains no meaningful abscess to drain. I suppose it is reasonable to continue with antibiotics. Subjective Subjective Interval history since last seen: Josiah tells me that he feels ok this morning, and is really not bothered by his back. He had a little bit of discomfort sleeping in the hospital bed, but otherwise feels fine. Exam Skin Other: He still has some blanching erythema on his back, but it does seem like it is a little bit better than it was yesterday. It is well within the confines of what was marked out on the skin. And I think it smaller than yesterday. Objective Last Vital Signs Temp 97.7 F 12/21/24 07:23 Pulse 64 12/21/24 07:23 Resp 18 12/21/24 07:23 BP 129/78 12/21/24 07:23 Pulse Ox 96 12/21/24 07:23 Laboratory Results - last 24 hr 12/21/24 06:40 WBC 5.28 RBC 4.34 L Hgb 13.0 L Hct 39.1 L MCV 90 MCH 30.0 MCHC 33.2 RDW 13.4 Plt Count 237 MPV 10.3 Immature Gran % 0.6 Neutrophils % 75.9 Lymphocytes % 11.2 Monocytes % 10.2 Eosinophils % 1.7 Basophils % 0.4 Nucleated RBC % 0.0 Absolute Neutrophils 4.01 Absolute Lymphocytes 0.59 L Absolute Monocytes 0.54 Absolute Eosinophils 0.09 Absolute Basophils 0.02 Sodium 140 Potassium 3.7 Chloride 103 Carbon Dioxide 30.2 Anion Gap 6.8 BUN 9 Creatinine 0.8 Est GFR (CKD-EPI 2020) 91.72 Glucose 104 Calcium 8.6 Magnesium 1.7 L PAWSS Have you Been Recently Intoxicated or Drunk Within the Last 30 days?: No Have you Ever Experienced Previous Episodes of Alcohol Withdrawal?: No Have you ever Experienced Withdrawal Seizures?: No Have you ever Experienced Delirium Tremens(DT)s?: No Have you ever undergone Alcohol Rehabilitation Treatment (i.e, inpt ot outpatient treatment programs)?: No Have you ever Experienced Blackouts?: No Have you ever Combined Alcohol with other Downers within the last 90 days?: No Have you ever Combined Alcohol with any other Substance of Abuse during the last 90 days?: No Positive Blood Alcohol level on Presentation? [PCS.BAL]: No Evidence of Increased Autonomic Activity (i.e. HR>120, tremor, sweating, agitation, nausea)?: No Result: 0 Time Spent with Patient Time Spent with Patient: <25 minutes Time was spent: preparing to see the patient(eg.review tests) and counseling the patient
[2024-12-21 20:06] VITALS: BP 126/79; PULSE 61; RESP 18; TEMP 36.7; O2SAT 96
[2024-12-21] MEDS: Ramelteon 8 MG TAB PO (22:56)
[2024-12-22 06:26] LABS: Abs Immature Grans 0.04 10^3/uL (0.0-0.06); Absolute Basophil Count 0.01 10^3/uL (0.0-0.2); Absolute Eosinophil Count 0.11 10^3/uL (0.0-0.7); Absolute Lymphocyte Count 0.66 10^3/uL (1.2-3.4); Absolute Monocyte Count 0.51 10^3/uL (0.1-0.8); Absolute Neutrophil Count 3.86 10^3/uL (1.2-6.7); Basophils % 0.2 %; Eosinophils % 2.1 %; HCT 38.7 % (40.0-50.0); HGB 12.6 g/dL (13.5-17.5); Immature Grans % 0.8 %; Lymphocytes % 12.7 %; MCHC 32.6 % (32.0-36.0); MCV 89 fL (80-95); MPV 10.7 fL (8.0-11.0); Monocytes % 9.8 %; Neutrophils % 74.4 %; Platelet Count 240 10^3/uL (130-400); RBC 4.34 10^6/uL (4.36-5.78); RDW 13.2 % (11.8-14.1); RDW-SD 43.8 fL; WBC 5.19 10^3/uL (4.4-10.8)
[2024-12-22 07:46] VITALS: BP 117/74; PULSE 59; RESP 16; TEMP 36.1; O2SAT 96
[2024-12-22] MEDS: Enoxaparin 40 MG/0.4 ML SYR SC (07:54)
[2024-12-22] MEDS: Tamsulosin 0.4 MG CAPCR PO (07:55)
[2024-12-22] MEDS: Normal Saline Flush 10 ML SYR IVP (07:55)
[2024-12-22] MEDS: Omeprazole 20 MG CAPCR PO (07:55)
[2024-12-22] MEDS: amLODIPine 2.5 MG TAB PO (07:55)
[2024-12-22] MEDS: Furosemide 20 MG TAB PO (07:55)
[2024-12-22 08:09] LABS: Anion Gap 6.5 mmol/L (3-11); BUN 10 mg/dL (7-18); CO2 30.5 mmol/L (21.0-32.0); Calcium 8.5 mg/dL (8.5-10.1); Chloride 102 mmol/L (98-107); Glucose 111 mg/dL (74-106); Potassium 3.7 mmol/L (3.5-5.1); Sodium 139 mmol/L (136-145)
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
[2024-12-22] MEDS: cefTRIAXone 2 GM/50 ML BAG IVPB (09:52)
--- NOTE | 2024-12-22 11:01 | W.PM.DS.N ---
Date of service: 12/22/24 Time of Service: 11:01 DS: Diagnosis Discharge Diagnosis (1) Cellulitis: Status: Acute Discharge Plan Disposition Patient Disposition: Home Condition: Improving Discharge Details Reason For Visit: cellulitis of the right back Admit Date/Time: 12/20/24 11:41 Admit Provider: Benito Alford Attending Provider: Benito Alford Primary Care Provider: Unknown,Unknown Hospital Course Hospital Course: This 74-year-old male patient with past medical history of hyperlipidemia, hypertension, recently seen at [facility] with injection of IM ceftriaxone for infectious pimple to the right upper back was referred to the ED at [facility] on follow-up with the [facility] due to worsening right upper back cellulitis. Blood work was unremarkable. The patient was admitted to the medical surgical floor for ongoing treatment for cellulitis and ongoing treatment with IV ceftriaxone and vancomycin.A surgical consult was completed without recommendation for interventions. Surgeon suspected the nidus of the infection was a sebaceous cyst that ruptured internally and became infected. Blood cultures were negative and the patient will be discharged home on oral antibiotics. The patient remained hemodymamically stable; pain and erythema at the cellulitis site improved. Follow-up with PCP within 7 days of discharge please. Recommendation for PCP follow up: Repeat exam after complete healing would be prudent to look for any persisting focus of infection . Discussed with Dr. Alford Home Meds and New Rx's Prescriptions: New sulfamethoxazole-trimethoprim [Bactrim DS] 800-160 mg tablet 1 tab PO Q12H Qty: 16 0RF Bio-K plus 50 billion cell capsule,delayed release(DR/EC) 1 cap PO DAILY Qty: 10 0RF Rx Instructions: Take 3 hours apart from antibiotics Continued omeprazole 20 MG tablet,delayed release (DR/EC) 20 mg PO BID Qty: 180 3RF tamsulosin 0.4 MG capsule 0.4 mg PO DAILY Qty: 90 3RF albuterol sulfate [ProAir HFA] 8.5 GM HFA aerosol inhaler 1 - 2 puff Inhalation Q4-6H PRN Qty: 1 1RF Rx Instructions: DISPENSE ALBUTEROL INHALER BRAND COVERED BY INSURANCE (DME) Space Chamber Plus 1 EACH spacer Miscellaneous PRN Qty: 1 Rx Instructions: To be used with inhaler. amlodipine 2.5 mg Tablet 2.5 mg PO DAILY furosemide 20 mg Tablet 20 mg PO DAILY propranolol 80 MG capsule,extended release 24hr 40 mg PO DAILY Discharge Instructions Referrals: Unknown,Unknown [Primary Care Provider, Unknown] Referral Note: Follow-up with PCP within 7 days of discharge please ( [facility]) Activity:: Activity as Tolerated Equipment/Supplies:: No Equipment Needed Diet:: heart healthy Discharge Orders Discharge Orders: Discharge Order (Routine); Ordered 12/22/24 Ordered By: Ginny Still DS: Summary Time Spent with Patient providing and/or coordinating discharge services: Greater than 30 minutes Status at Discharge Functional status at discharge: independent ambulation Overall status at discharge: patient is progressing back to baseline Mental Status: mental status grossly normal Speech and Movement: speech and movement normal Mood: congruent mood Affect: normal affect Exam Psych Mental Status: mental status grossly normal Speech and Movement: speech and movement normal Mood: congruent mood Affect: normal affect DS: Data Vitals/I&O Vitals and I&O: Vital Signs Temperature 36.1 C L 12/22/24 07:46 Temperature Source Temporal Artery Scan 12/22/24 07:46 Pulse 59 L 12/22/24 07:46 Pulse Rhythm Regular 12/20/24 13:25 Respiratory Rate 16 12/22/24 07:46 Respiratory Effort Normal, Non-Labored 12/20/24 13:25 Respiratory Depth Normal 12/20/24 13:25 Respiratory Pattern Normal 12/20/24 13:25 Blood Pressure 117/74 12/22/24 07:46 Blood Pressure Mean 88 12/22/24 07:46 Blood Pressure Position Sitting 12/20/24 10:21 Pulse Oximetry 96 12/22/24 07:46 Oxygen Delivery Method Room Air 12/22/24 07:46 Oxygen Flow Rate 0 12/22/24 07:46 Pain Level 0 12/22/24 07:46 Intake & Output 12/21/24 12/21/24 12/22/24 11:59 23:59 11:59 Intake Total 760 / 2260 1500 / 2260 560 / 560 Output Total 300 / 300 Balance 760 / 2260 1500 / 2260 260 / 260 Intake: IV 260 / 480 220 / 480 200 / 200 Oral 500 / 1780 1280 / 1780 360 / 360 Output: Urine 300 / 300 Other: Urine Color Yellow Urine Appearance Clear Comment pT stated he voided immeasurable void into toilet. Pt voids independently Stool Characteristics Soft Data Completed and Pending Labs on day of discharge: Labs from last 24 hours 12/22/24 12/22/24 10:18 06:00 WBC 5.19 RBC 4.34 L Hgb 12.6 L Hct 38.7 L MCV 89 MCH 29.0 MCHC 32.6 RDW 13.2 Plt Count 240 MPV 10.7 Immature Gran % 0.8 Neutrophils % 74.4 Lymphocytes % 12.7 Monocytes % 9.8 Eosinophils % 2.1 Basophils % 0.2 Nucleated RBC % 0.0 Absolute Neutrophils 3.86 Absolute Lymphocytes 0.66 L Absolute Monocytes 0.51 Absolute Eosinophils 0.11 Absolute Basophils 0.01 Sodium 139 Potassium 3.7 Chloride 102 Carbon Dioxide 30.5 Anion Gap 6.5 BUN 10 Creatinine 1.0 Est GFR (CKD-EPI 2020) 78.00 Glucose 111 H Calcium 8.5 Vancomycin Trough Pending Preliminary micro results at discharge 12/20/24 12:55 Blood Blood Culture - Preliminary NO GROWTH 24 HOURS 12/20/24 12:40 Blood Blood Culture - Preliminary NO GROWTH 24 HOURS PFSH All Active Problems (Updated 12/22/24 @ 09:20 by Shi Burrows MD) Cellulitis (Acute) Discharge planning issues (Acute) On deep vein thrombosis (DVT) prophylaxis (Acute) Cellulitis of back (Acute) IFG (impaired fasting glucose) (Chronic) Obesity (BMI 30-39.9) (Chronic) Varicose veins of lower extremity (Chronic 10/02/12) Compression stockings Restrictive lung disease (Chronic 11/16/14) TLC 63% 10/[address] [facility] [place] unclear Hyperlipidemia (Chronic 04/21/17) 03/2018 labs: 10-year ASCVD risk = ~15.7% --> pt advised to consider statin Gastroesophageal reflux disease (Chronic 10/02/12) Essential tremor (Chronic 05/10/13) Diverticulosis of large intestine without perforation or abscess without bleeding (Chronic 07/10/16) Saenz's esophagus (Chronic 09/24/11) Most recent EGD 06/20/2016 (Dr. Raman) with 3 year f/u recommended BPH (benign prostatic hyperplasia) (Chronic 09/01/14) Medical History (Updated 12/22/24 @ 09:20 by Shi Burrows MD) Barretts esophagus IFG (impaired fasting glucose) HLD (hyperlipidemia) Surgical History Vasectomy (~1976) Tonsillectomy (~1976) Cholecystectomy (~1994) Family History Mother No problems noted. Father , ?colon cancer Neoplasm colon ca Brother , esophagus cancer at age 54. Personal history of malignant neoplasm Social History Smoking/Tobacco Use Status: Former Tobacco Use Smoking risk assessment performed?: Yes Alcohol Intake: current Alcohol Intake frequency: holidays/special occasions only Substance use type: does not use Housing: house Time Spent with Patient Time Spent with Patient: 70-84 minutes4 Time was spent: preparing to see the patient(eg.review tests), obtaining and/or reviewing separately otained hiistory, ordering medications,tests, procedures, referring, communicating with other health animal care service worker, indepentently interpreting results, counseling the patient and care coordination
[2024-12-22] MEDS: VANCOMYCIN/WATER (PEG) 1 GM/200 ML BAG IV (11:35)
[2024-12-22] MEDS: Lactobacillus Acidophilus CAP 1 CAP PO (11:37)
[2024-12-22 12:46] LABS: Vancomycin, Trough 9.5 ug/mL (10.0-20.0)
--- NOTE | 2024-12-22 15:32 | PDOC.CMDIS ---
Date of service: 12/22/24 Time of Service: 15:32 LACE Index Scoring Tool Questions: Length of Stay (in days): 2 Was the patient admitted via the E.D.?: Yes E.D. Visits: 1 Answers: Total Score: 6 Risk of Readmission: Low Risk Care Management Discharge Plan Reason for Hospitalization: cellulitis that worsened on oral antibiotics Discharge Plan: Josiah was discharged home earlier today with no new services. He will f/u with his provider at the [facility] and continue per his plan of care. Josiah transported home with his . Patient/Family Education Needs: Review of discharge instructions, activity, limitations, and discuss Ask me 3.
== END 2024-12-22 15:05 | disposition home or self-care (01) | DRG 603 ==
LOC: ER 11:23 → MS 13:13
PROVIDERS: Admitting Provider Family Medicine; Emergency Provider Emergency Medicine; Responsible Provider Nurse Practitioner Acute Care; Visit Provider Family Medicine
DX: L03.312 Cellulitis of back [any part except buttock and flank] (principal); E66.9 Obesity, unspecified; E78.5 Hyperlipidemia, unspecified; K21.9 Gastro-esophageal reflux disease without esophagitis; N40.0 Benign prostatic hyperplasia without lower urinary tract symptoms; Z79.899 Other long term (current) drug therapy; J98.4 Other disorders of lung; K57.30 Diverticulosis of large intestine without perforation or abscess without bleeding; G25.0 Essential tremor; R73.01 Impaired fasting glucose; Z87.891 Personal history of nicotine dependence; I10 Essential (primary) hypertension
CPT/HCPCS: 00123; 36415; 80048; 87040; 96365; 96366; 96367; 99285; J1650; 80202; 83735; 85025; 99223; 99233; 99239; J0696; J3372